=== PATIENT | female | born 1970 | race Asian ===

== ENCOUNTER → 2020-11-12 | Outpatient (CLI) | payer MEDICAID ==
[2020-11-12 22:01] LABS: HCT 40.1 % (37.2-46.3); HGB 12.7 g/dL (12.0-15.0); MCH 28.7 pg (27.0-32.0); MCHC 31.7 g/dL (32.0-37.0); MCV 90.7 fL (80.0-97.0); Mean Platelet Volume 10.5 fL (9.5-12.2); Platelet Count 297 X 10*3/uL (140-440); RBC 4.42 X 10*6/uL (4.10-5.20); RDW 12.5 % (11.5-14.5); WBC 4.05 X 10*3/uL (4.50-10.00)
[2020-11-13 03:40] LABS: African American GFR (CKD) 121.5 (60.0-200.0); Albumin 4.5 g/dL (3.80-4.90); Albumin/Globulin Ratio 1.96 (1.60-3.17); Anion Gap 14.7 mmol/L (4.00-12.00); Calcium 9.7 mg/dL (8.7-10.3); Carbon Dioxide 24.3 mmol/L (21.6-31.8); Globulin 2.3 g/dL (1.6-3.3); Non-African American GFR(CKD) 104.8 (60.0-200.0); Potassium 4.5 mmol/L (3.5-5.5); Total Bilirubin 0.5 mg/dL (0.2-1.2); Total Protein 6.8 g/dL (6.2-8.2)
[2020-11-13 04:06] LABS: Follicle Stimulating Hormone 100.9 mIU/mL; Progesterone <0.2 ng/mL; Thyroid Peroxidase Antibodies <28.0 U/mL (0.0-60.0)
== END | disposition home or self-care (01) ==
LOC: LABWHC1 12:12
PROVIDERS: ATTEND Obstetrics & Gynecology
DX: E34.50 Androgen insensitivity syndrome, unspecified (principal); R37 Sexual dysfunction, unspecified; N95.1 Menopausal and female climacteric states; N95.2 Postmenopausal atrophic vaginitis; R61 Generalized hyperhidrosis; R53.83 Other fatigue
CPT/HCPCS: 36415; 80053; 82306; 82607; 82670; 83001; 84144; 84403; 84443; 84481; 85027; 86376

== ENCOUNTER → 2021-01-12 | Outpatient (CLI) | payer MEDICAID ==
[2021-01-12 19:49] LABS: Estradiol 45.9 pg/mL; Follicle Stimulating Hormone 39.7 mIU/mL
== END | disposition home or self-care (01) ==
LOC: LABWHC1 08:10
PROVIDERS: ATTEND Obstetrics & Gynecology
DX: N95.1 Menopausal and female climacteric states (principal); N95.2 Postmenopausal atrophic vaginitis; R37 Sexual dysfunction, unspecified
CPT/HCPCS: 36415; 82670; 83001; 84144; 84403